=== PATIENT | female | born 1995 | race Caucasian/White ===

== ENCOUNTER 2020-11-29 10:47 | Emergency (ER) | payer BC, OTHER ==
[~2020-11-29] VITALS: Ht 167.6 cm; Wt 79.8 kg
[2020-11-29] MEDS ORDERED: ONDANSETRON 2MG/ML, 2ML IVPush ONE (11:30)
[2020-11-29] MEDS ORDERED: SODIUM CHLORIDE 0.9% 1,000ML IVBOLUS ONE ×2 (11:30→13:00)
[2020-11-29] MEDS ORDERED: SODIUM CHLORIDE FLUSH 10ML SYR IVF ONE (11:30)
[2020-11-29] MEDS ORDERED: PLEASE ENTER ALLERGIES MC SCH (11:30)
[2020-11-29] MEDS ORDERED: ONDANSETRON 2MG/ML, 2ML ONE (11:40)
--- NOTE | 2020-11-29 11:45 | NUR ---
pt presents to ED with c/o generalized abd pain, n/v/d since last night. pt denies any recent travel or sick contacts. pt denies chance of . pt states she had a syncopal event this am after vomiting, denies head injury, denies cervical pain. neuro intact. all monitors in place, nsr on campus monitor with no ectopy. piv placed. pt medicated per emar, notes 8/10 generalized abd pain at this time. pt instructed to provide clean catch ua, supplies at bedside, pt states she has no urge to void at this time. call light in reach. awaiting labs and dispo.
[2020-11-29 11:46] LABS: BASOPHILS % (AUTO) 0 % (0-1); EOSINOPHILS % (AUTO) 0 % (1-7); LYMPHOCYTES % (AUTO) 4 % (22-44); MEAN CORPUSCULAR HGB CONC 33.6 g/dL (32.4-35.8); MEAN PLATELET VOLUME 8.8 fL (7.4-10.4); MONOCYTES % (AUTO) 2 % (2-9); NEUTROPHILS % (AUTO) 94 % (42-75); PLATELET COUNT 243 x10^3/uL (130-400); RED BLOOD COUNT 4.96 x10^6/uL (3.82-5.3); RED CELL DISTRIBUTION WIDTH 12.6 % (9.6-15.2)
[2020-11-29 11:58] LABS: ALBUMIN 4.1 g/dL (3.4-5.0); ANION GAP 12 mmol/L (5-15); CALCIUM 9.3 mg/dL (8.5-10.1); CHLORIDE 110 mmol/L (98-107)
[2020-11-29] MEDS ORDERED: HYDROmorphone 1 MG/ML, 1ML INJ ONE (11:58)
[2020-11-29] MEDS ORDERED: HYDROmorphone 1 MG/ML, 1ML INJ IV ONE (12:00)
[2020-11-29 12:02] LABS: ALANINE AMINOTRANSFERASE 10 U/L (12-78); ALKALINE PHOSPHATASE 62 U/L (45-117); BILIRUBIN,TOTAL 0.8 mg/dL (0.2-1.0); CREATININE 1.33 mg/dL (0.55-1.02); MD SCAN; TOTAL PROTEIN 8.5 g/dL (6.4-8.2)
--- NOTE | 2020-11-29 12:09 | NUR ---
preceptor note: aldair us notified of pt request for pain med d/t 03/26 abd pain, dilaudid admin by RN Broderick per emar. pt tolerating well. all monitors remain in place. nsr on environmental monitoring specialist. pt maintaining 100% pulse ox on room air. family at bedside. aldair notified pt reports she is unable to void at this time, no further orders received.
--- NOTE | 2020-11-29 12:25 | NUR ---
spo2 dropped to 85% after pt fell asleep, resps even and unlabored at rate of 20. oxygen applied at 2l/min, spo2 now 99%.
--- NOTE | 2020-11-29 13:00 | NUR ---
pt ambulatory to bathroom, back to bed and now on all monitors. KELLE Larios and NOEMI Choe notified pt reports syncopal event this am, no injury identified. pt remains a&o, resps even and unlabored, nsr on panel monitor with no ectopy noted. pt reports pain relieved s/p dilaudid. awaiting ua and dispo.
[2020-11-29 13:10] LABS: MICROSCOPIC INDICATED
--- NOTE | 2020-11-29 13:20 | NUR ---
second liter NS initiated, pt denies pain. pt a&o, resps even and unlabored, nadn. nsr on residential monitor with no ectopy. awaiting ua and dispo.
--- NOTE | 2020-11-29 13:21 | NUR ---
report to break RICHAR Olivier.
--- NOTE | 2020-11-29 13:31 | NUR ---
BREAK RN: PER ERP, PT PROVIDED WATER FOR PO CHALLENGE.
--- NOTE | 2020-11-29 13:50 | NUR ---
BREAK RN: PT STATES SHE HAS TOLLERATED WATER WELL. DENIES N/V. CHART UP FOR RECHECK.
--- NOTE | 2020-11-29 13:59 | NUR ---
BREAK RN: REPORT GIVEN TO NATALIE PATEL RN.
--- NOTE | 2020-11-29 14:36 | NUR ---
pt resting on gurney, pt a&o, resps even and unlabored. nsr on water taxi boat mate with no ectopy. pt denies pain. MD Larios notified pt meeting sirs criteria, all labs including urine reviewed by EDMD, per pt has no infectious source. per pt to be discharged.
[2020-11-29 15:33] VITALS: BP 97/54
== END 2020-11-29 15:35 | disposition home or self-care (01) ==
LOC: ED 13:47
DX: E86.0 Dehydration (principal); R11.2 Nausea with vomiting, unspecified; R19.7 Diarrhea, unspecified; R50.9 Fever, unspecified; M79.10 Myalgia, unspecified site
CPT/HCPCS: 36415; 80053; 81001; 83690; 84703; 85025; 87086; 96361; 96374; 96375; 99285; J1170; J2405; J7030